=== PATIENT | female | born 1985 ===

== ENCOUNTER 2017-12-10 12:36 | Inpatient (IN) | payer OTHER ==
[~2017-12-10] VITALS: Ht 157.5 cm; Wt 76.2 kg
[~2017-12-10 12:36] MED LIST: ADDERALL 20 MG20 MG; LEXAPRO20 MG; SYNTHROID137 MCG; WELLBUTRIN SR150 MG
[2017-12-14] MEDS ORDERED: SYNTHROID150 MCG PO (15:17)
[2017-12-14] MEDS ORDERED: ZOLOFT25 MG PO (15:18)
[2017-12-14] MEDS ORDERED: PRENATAL TABLE1 EAC1 PO (15:19)
[2017-12-14] MEDS ORDERED: FERROUS SULFAT325 MG PO (15:20)
== END 2017-12-16 12:23 | DRG 775 ==
LOC: LDR → OB/GYN 12-14 10:52 → LDR 12-14 14:12 → OB/GYN 12-14 18:14 → LDR 01-08 12:35
PROC: 10E0XZZ Delivery of Products of Conception, External Approach (ICD-10-PCS; principal; 2017-12-14)
PROC: 0W8NXZZ Division of Female Perineum, External Approach (ICD-10-PCS; 2017-12-14)
PROC: 10907ZC Drainage of Amniotic Fluid, Therapeutic from Products of Conception, Via Natural or Artificial Opening (ICD-10-PCS; 2017-12-14)
PROC: 3E033VJ Introduction of Other Hormone into Peripheral Vein, Percutaneous Approach (ICD-10-PCS; 2017-12-14)
PROC: 4A1HXCZ Monitoring of Products of Conception, Cardiac Rate, External Approach (ICD-10-PCS; 2017-12-14)
DX: O60.14X0 Preterm labor third trimester with preterm delivery third trimester, not applicable or unspecified (principal); Z3A.36 36 weeks gestation of pregnancy; Z37.0 Single live birth

== ENCOUNTER 2017-12-10 12:59 | Outpatient (CLI) | payer OTHER | END 2017-12-10 13:35 | disposition home or self-care (01) | LOC: NST 12:59 | DX: Z34.83 Encounter for supervision of other normal pregnancy, third trimester (principal) ==

== ENCOUNTER 2020-07-25 08:30 | Outpatient (CLI) | payer OTHER ==
[~2020-07-25 08:30] MED LIST changes: +FERROUS SULFAT325 MG PO; +PRENATAL TABLE1 EAC1 PO; +SYNTHROID150 MCG PO; +ZOLOFT25 MG PO
== END 2020-07-25 08:39 | disposition home or self-care (01) ==
LOC: SONOGRAMA 08:30
PROVIDERS: ATTEND Pediatrics
DX: E04.2 Nontoxic multinodular goiter (principal); E06.3 Autoimmune thyroiditis

== ENCOUNTER 2021-05-02 08:00 | Outpatient (CLI) | payer OTHER | END 2021-05-02 08:30 | disposition home or self-care (01) | LOC: PPH VACUNA 08:00 | PROVIDERS: ATTEND Emergency Medicine Pediatric Emergency Medicine | DX: Z23 Encounter for immunization (principal) ==

== ENCOUNTER 2023-03-16 10:43 | Outpatient (CLI) | payer OTHER | END 2023-03-16 10:56 | disposition home or self-care (01) | LOC: SONOGRAMA 10:43 | PROVIDERS: ATTEND General Practice | DX: E03.8 Other specified hypothyroidism (principal); R73.01 Impaired fasting glucose; E55.9 Vitamin D deficiency, unspecified; E56.8 Deficiency of other vitamins ==

== ENCOUNTER 2024-01-09 11:48 | Outpatient (CLI) | payer OTHER ==
[2024-01-09 12:42] LABS: PH,URINE 5.5 (5.0-8.0); URINE APPEARANCE Cloudy; URINE BILIRRUBIN Negative (NEGATIVE); URINE BLOOD NHT; URINE COLOR Yellow; URINE GLUCOSE Negative (NEGATIVE); URINE KETONE Trace (NEGATIVE); URINE LEUKOCYTE Small; URINE NITRATE Negative; URINE PROTEIN Negative (NEGATIVE); URINE UROBILINOGEN 0.2 E.U./dl
[2024-01-09 12:44] LABS: URINE EPITHELIAL CELLS 183.7 uL (0.0-38.8); URINE WBC 57.3 uL (0.0-23.2)
[2024-01-09 12:47] LABS: MEAN CELL VOLUME 81.4 fL (80.00-100.00); MEAN CORPUSCULAR HEMOGLOBIN 26.3 pg (27.00-32.0); MEAN CORPUSCULAR HGB CONC 32.3 g/dl (32.0-36.0); PLATELET COUNT 396 K/uL (150-450); RED BLOOD COUNT 4.18 M/uL (4.00-6.00); RED CELL DISTRIBUTION WIDTH 19.6 % (11.5-14.5)
[2024-01-09 13:13] LABS: URINE CAST 0.45 uL (0.0-1.40)
[2024-01-09 13:43] LABS: ALBUMIN 3.8 gm/dL (3.4-5.0); BILIRUBIN TOTAL 0.17 mg/dL (0.3-1.2); CHOL HDL RATIO 2.8 (0-5.0); CREATININE SERUM 0.75 mg/dL (0.55-1.02); FREE TRIODOTIRONINE 2.24 pg/ml (2.18-3.98); GFR 86.95; GLOBULINA 3.2 G/DL (2.4-3.5); POTASSIUM 4.73 mEq/L (3.5-5.1); T4 TOTAL 6.72 UG/DL (4.8-13.9); TSH 1.62 uIU/mL (0.358-3.74)
[2024-01-11 11:14] LABS: VITAMIN D3 25 HYDROXY 44.61 ng/ml (30-120)
== END 2024-01-09 11:55 | disposition home or self-care (01) ==
LOC: LAB 11:48
DX: E86.0 Dehydration (principal); E78.00 Pure hypercholesterolemia, unspecified; R94.6 Abnormal results of thyroid function studies; N39.0 Urinary tract infection, site not specified; E55.9 Vitamin D deficiency, unspecified; D51.1 Vitamin B12 deficiency anemia due to selective vitamin B12 malabsorption with proteinuria; E88.819 Insulin resistance, unspecified

== ENCOUNTER 2024-06-13 10:04 | Outpatient (CLI) | payer OTHER | END 2024-06-13 10:19 | disposition home or self-care (01) | LOC: MAMO-SONO 10:04 | PROVIDERS: ATTEND Obstetrics & Gynecology | DX: N60.11 Diffuse cystic mastopathy of right breast (principal); R05.9 Cough, unspecified ==

== ENCOUNTER 2024-06-30 12:25 | Outpatient (CLI) | payer OTHER | END 2024-06-30 12:31 | disposition home or self-care (01) | LOC: MRI 12:25 | PROVIDERS: ATTEND Pediatrics | DX: S83.511A Sprain of anterior cruciate ligament of right knee, initial encounter (principal); S80.01XA Contusion of right knee, initial encounter; X58.XXXA Exposure to other specified factors, initial encounter; Y93.9 Activity, unspecified; Y92.9 Unspecified place or not applicable; Y99.9 Unspecified external cause status | CPT/HCPCS: 73721 ==

== ENCOUNTER 2024-07-06 12:51 | Outpatient (CLI) | payer OTHER | END 2024-07-06 12:55 | disposition home or self-care (01) | LOC: RAD 12:51 | PROVIDERS: ATTEND Orthopaedic Surgery Sports Medicine | DX: M76.51 Patellar tendinitis, right knee (principal); M76.52 Patellar tendinitis, left knee ==

== ENCOUNTER 2024-09-20 11:53 | Outpatient (CLI) | payer OTHER | END 2024-09-20 11:56 | disposition home or self-care (01) | LOC: RAD 11:53 | PROVIDERS: ATTEND Pediatrics | DX: M25.561 Pain in right knee (principal); M23.91 Unspecified internal derangement of right knee; S80.911S Unspecified superficial injury of right knee, sequela ==